=== PATIENT | female | born 1935 | race Caucasian/White ===

== ENCOUNTER 2017-07-04 15:46 | Emergency (ER) | payer MEDICARE, BC ==
[~2017-07-04] VITALS: Ht 167.6 cm; Wt 85.0 kg
[~2017-07-04 15:46] MED LIST: ADVA100A INH; ALPR-138 PO; ASPI325T PO; ATOR40TA PO; CALC600T34 PO; DIPH2%T PO; LATA.005%O OU; LEVO.125 PO; LISI10 PO; NORV10TA PO; PREV30CA36 PO; RHINSUS; SERT100 PO; SIME1CHW12 PO; TAB-TAB PO; VITA100017 PO; ZOLP10TA3 PO
[2017-07-04 15:50] VITALS: BP 122/66; PULSE 100; RESP 24; TEMP 98.1; O2SAT 94
[2017-07-04 16:43] VITALS: BP 140/81; PULSE 94; RESP 15; TEMP 98.6; O2SAT 95
[2017-07-04] MEDS ORDERED: MECLIZINE HCL 25 MG TAB PO ONE (17:15)
[2017-07-04] MEDS ORDERED: SODIUM CHLORIDE 0.9% FLUSH 10 ML FLUSH IVF PRN (17:15)
[2017-07-04] MEDS ORDERED: ONDANSETRON HCL 4 MG/2 ML VIAL IVP ONE (17:15)
--- NOTE | 2017-07-04 17:29 | PD ---
HPI Chief Complaint: Dizziness Time Seen by Provider: 16:57 Travel History International Travel<30 days: No Contact w/Intl Traveler<30days: No Traveled to known affect area: No History of Present Illness HPI Patient is a 81-year-old female presenting to emergency from for evaluation of dizziness, nausea, weakness. Patient also states that the left side of her face felt weak, she has had to hold onto florentino and furniture to walk. is at bedside and states he has not noticed any slurred speech or behavioral changes. She denies any chest pain, shortness of breath, abdominal pain, vomiting. Patient has a history of vertigo but states the symptoms are not like what she is experienced in the past. She came to emergency department today because she states her symptoms got worse and she was concerned about a stroke. She has a history of a TIA last year. Her past medical history significant for hypertension, COPD, hypothyroidism, vertigo, TIA. PFSH Past Medical History Arthritis: Yes Asthma: Yes Autoimmune Disease: No Anxiety: Yes Depression: Yes Heart Rhythm Problems: Yes (extra beat) Cancer: No Cardiovascular Problems: Yes High Cholesterol: No Chest Pain: No Congestive Heart Failure: No COPD: No Cerebrovascular Accident: Yes (april 2016) Diabetes: No Gastrointestinal Disorders: Yes GERD: Yes Genitourinary: No Headaches: Yes Hiatal Hernia: Yes Hypertension: Yes Immune Disorder: No Medical other: Yes (vertigo) Musculoskeletal: Yes Neurologic: Yes Psychiatric: Yes Reproductive: No Respiratory: Yes (copd ) Immunizations Current: Yes Migraines: No Radiation Therapy: No Sickle Cell Disease: No Sleep Apnea: Yes Thyroid Disease: Yes Ulcer: No ?: Not Past Surgical History AICD: No Appendectomy: Yes Arteriovenous Shunt: No Body Medical Devices: right arms with metals , 2 knots and bolts Eye Surgery: Yes (cataract bilat ) Hysterectomy: Yes Insulin Pump: No Joint Replacement: Yes (right shoulder) Pacemaker: No Social History Alcohol Use: No Tobacco Use: No Substance Use: No Allergies-Medications (Allergen,Severity, Reaction): Coded Allergies: diatrizoate meglumine (Unverified Allergy, Severe, anaphylactic, 07/04/17) gadobenic acid (Unverified Allergy, Severe, anaphylactic, 07/04/17) gadodiamide (Unverified Allergy, Severe, anaphylactic, 07/04/17) gadoteridol (Unverified Allergy, Severe, anaphylactic, 07/04/17) iodixanol (Unverified Allergy, Severe, anaphylactic, 07/04/17) iohexol (Unverified Allergy, Severe, anaphylactic, 07/04/17) niacin (Unverified Allergy, Severe, rash and eyes swelled, 07/04/17) Reported Meds & Prescriptions Reported Meds & Active Scripts Active Meclizine (Meclizine HCl) 25 Mg Tab 25 Mg PO TID PRN Reported Dhea 25 (Prasterone (DHEA)) 25 Mg Cap Aspirin 81 Mg Chew 81 Mg CHEW DAILY B12 (Cyanocobalamin) 1,000 Mcg Tab Zolpidem (Zolpidem Tartrate) 10 Mg Tab 10 Mg PO HS PRN Alprazolam 0.25 Mg Tab 0.25 Mg PO TID PRN Sertraline (Sertraline HCl) 100 Mg Tab 100 Mg PO DAILY Myrbetriq (Mirabegron) 50 Mg Tab 50 Mg PO DAILY Leflunomide 20 Mg Tab 20 Mg PO DAILY Gabapentin 300 Mg Cap 300 Mg PO AC LUNCH Gabapentin 600 Mg Tab 600 Mg PO AC BREAKFAST Proair Hfa 8.5 GM Inh (Albuterol Sulfate) 90 Mcg/Act Aer 1 Puff INH Q4H PRN 108 mcg/actuation Advair Diskus Inh (Fluticasone-Salmeterol Inh) 250-50 Mcg/Blist Aer 1 Puff INH BID Rinse mouth after use. Atorvastatin (Atorvastatin Calcium) 40 Mg Tab 40 Mg PO HS Lisinopril 10 Mg Tab 10 Mg PO DAILY Amlodipine (Amlodipine Besylate) 10 Mg Tab 10 Mg PO DAILY Lansoprazole 30 Mg Capdr 30 Mg PO DAILY Magnesium Gluconate 27 Mg (500 Mg) Tab 500 Mg PO DAILY Allopurinol 300 Mg Tab 300 Mg PO DAILY Vitamin D3 (Cholecalciferol) 5,000 Unit Cap 5,000 Units PO DAILY Tenoretic 50 (Atenolol-Chlorthalidone) 50-25 Mg Tab 1 Tab PO DAILY Levothyroxine (Levothyroxine Sodium) 88 Mcg Tab 88 Mcg PO DAILY Probiotic (Lactobacillus Acidophilus) 10 Billion Cell Cap 1 Cap PO TIDAC Lazara Allergy (Fexofenadine HCl) 180 Mg Tab 180 Mg PO DAILY Review of Systems Except as stated in HPI: all other systems reviewed are Neg Eyes: No: Blurred Vision, Visual changes HENT: No: Headaches Cardiovascular: No: Chest Pain or Discomfort, Tachycardia Respiratory: No: Shortness of Breath Gastrointestinal: Positive: Nausea, No: Vomiting, Diarrhea, Abdominal Pain Genitourinary: No: Dysuria Musculoskeletal: No: Myalgias Neurologic: Positive: Weakness, Dizziness, Coordination Problem, No: Headache, Change in Mentation, Slurred Speech Physical Exam Narrative GENERAL: Well-developed, well-nourished, alert elderly female. Resting comfortably in no acute distress. SKIN: Warm and dry. HEAD: Atraumatic. Normocephalic. EYES: Pupils equal and round. No scleral icterus. No injection or drainage. Extraocular movements are intact. ENT: No nasal bleeding or discharge. Mucous membranes pink and moist. NECK: Trachea midline. No JVD. CARDIOVASCULAR: Regular rate and rhythm. RESPIRATORY: No accessory muscle use. Clear to auscultation. Breath sounds equal bilaterally. GASTROINTESTINAL: Abdomen soft, non-tender, nondistended. Hepatic and splenic margins not palpable. MUSCULOSKELETAL: Extremities without clubbing, cyanosis, or edema. No obvious deformities. NEUROLOGICAL: Awake and alert. No obvious cranial nerve deficits. Motor grossly within normal limits. Five out of 5 muscle strength in the arms and legs. Normal speech. PSYCHIATRIC: Appropriate mood and affect; insight and judgment normal. Data Data Last Documented VS Vital Signs Date Time Temp Pulse Resp B/P (MAP) Pulse Ox O2 Delivery O2 Flow Rate FiO2 07/04/17 17:34 (100) 95 Nasal Cannula 2.00 07/04/17 16:43 98.6 94 15 Orders Orders Electrocardiogram (07/04/17 17:06) Complete Blood Count With Diff (07/04/17 17:06) Comprehensive Metabolic Panel (07/04/17 17:06) Magnesium (Mg) (07/04/17 17:06) Urinalysis - C+S If Indicated (07/04/17 17:06) Ct Brain W/O Iv Contrast(Rout) (07/04/17 17:06) Ecg Monitoring (07/04/17 17:06) Iv Access Insert/Monitor (07/04/17 17:06) Oximetry (07/04/17 17:06) Meclizine (Antivert) (07/04/17 17:15) Ondansetron Inj (Zofran Inj) (07/04/17 17:15) Sodium Chloride 0.9% Flush (Ns Flush) (07/04/17 17:15) Sodium Chlor 0.9% 1000 Ml Inj (Ns 1000 M (07/04/17 18:45) Labs Laboratory Tests Test 07/04/17 17:30 07/04/17 18:15 White Blood Count 10.4 TH/MM3 Red Blood Count 4.53 MIL/MM3 Hemoglobin 12.5 GM/DL Hematocrit 38.0 % Mean Corpuscular Volume 84.0 FL Mean Corpuscular Hemoglobin 27.6 PG Mean Corpuscular Hemoglobin Concent 32.8 % Red Cell Distribution Width 14.9 % Platelet Count 235 TH/MM3 Mean Platelet Volume 8.9 FL Neutrophils (%) (Auto) 69.5 % Lymphocytes (%) (Auto) 18.9 % Monocytes (%) (Auto) 8.3 % Eosinophils (%) (Auto) 2.7 % Basophils (%) (Auto) 0.6 % Neutrophils # (Auto) 7.3 TH/MM3 Lymphocytes # (Auto) 2.0 TH/MM3 Monocytes # (Auto) 0.9 TH/MM3 Eosinophils # (Auto) 0.3 TH/MM3 Basophils # (Auto) 0.1 TH/MM3 CBC Comment DIFF FINAL Differential Comment Blood Urea Nitrogen 25 MG/DL Creatinine 0.97 MG/DL Random Glucose 114 MG/DL Total Protein 7.1 GM/DL Albumin 3.3 GM/DL Calcium Level 8.2 MG/DL Magnesium Level 1.8 MG/DL Alkaline Phosphatase 109 U/L Aspartate Amino Transf (AST/SGOT) 42 U/L Alanine Aminotransferase (ALT/SGPT) 35 U/L Total Bilirubin 0.4 MG/DL Sodium Level 136 MEQ/L Potassium Level 4.0 MEQ/L Chloride Level 103 MEQ/L Carbon Dioxide Level 23.0 MEQ/L Anion Gap 10 MEQ/L Estimat Glomerular Filtration Rate 55 ML/MIN MDM Medical Decision Making Medical Screen Exam Complete: Yes Emergency Medical Condition: Yes Interpretation(s) Vital Signs Date Time Temp Pulse Resp B/P (MAP) Pulse Ox O2 Delivery O2 Flow Rate FiO2 07/04/17 16:43 98.6 94 15 140/81 (100) 95 Nasal Cannula 2.00 07/04/17 16:43 106 15 94 Nasal Cannula 2.00 07/04/17 15:50 98.1 100 24 122/66 (84) 94 Room Air Differential Diagnosis Vertigo versus metabolic abnormality versus TIA versus CVA versus other Narrative Course Patient is a 81-year-old female that presented to emergency evaluation of dizziness. Patient has a history of the same. This has been ongoing for 2 weeks. There are no focal deficits noted on exam. Patient's vital signs are stable. Labs and imaging ordered and pending. CT scan of the brain shows no acute abnormality. Labs reviewed, no acute findings were identified. Urinalysis was ordered, specimen needed to be be collected due to inadequate amount. At this time patient refused stating she had no urinary symptoms. Exam appears most consistent with vertigo. Patient was also seen and evaluated by my attending physician. Patient was reassessed, she states that she feels better after the administration of meclizine and IV fluids. She is requesting to be discharged home. Patient is encouraged to follow-up with her primary doctor, she would likely benefit from vestibular rehabilitation was dictated. She was encouraged to return to emergency department for any new or worsening symptoms. Patient verbalized understanding of these instructions. Patient is stable for discharge. Diagnosis Primary Impression: Vertigo Referrals: Primary Care Physician 2 days Patient Instructions: General Instructions, Vertigo (ED) Additional Instructions: Follow-up with her primary doctor Take medications as directed Return to emergency department for any new or worsening symptoms Med/Other Pt SpecificInfo: Prescription(s) given Scripts Meclizine (Meclizine) 25 Mg Tab 25 MG PO TID Y for VERTIGO, #30 TAB 0 Refills Prov: Chrissie Durbin 07/04/17 Disposition: 01 DISCHARGE HOME Condition: Stable Chrissie Durbin Jul 04, 2017 17:29
[2017-07-04 17:34] VITALS: O2SAT 95
--- NOTE | 2017-07-04 17:50 | RADRPT ---
EXAM DATE/TIME: 07/04/2017 17:37 [facility] COMPARISON: CT BRAIN W/O CONTRAST, April 29, 2016, 22:14. INDICATIONS : Patient complains of dizziness. RADIATION DOSE: 36.45 CTDIvol (mGy) MEDICAL HISTORY : Cerebrovascular disease. Chronic obstructive pulmonary disease. SURGICAL HISTORY : Hysterectomy. ENCOUNTER: Initial ACUITY: 1 week PAIN SCALE: 0/10 LOCATION: cranial TECHNIQUE: Multiple contiguous axial images were obtained of the head. Using automated exposure control and adj ustment of the mA and/or kV according to patient size, radiation dose was kept as low as reasonably a chievable to obtain optimal diagnostic quality images. DICOM format image data is available electro nically for review and comparison. FINDINGS: CEREBRUM: The ventricles are normal for age. No evidence of midline shift, mass lesion, hemorrhage or acute in farction. No extra-axial fluid collections are seen. POSTERIOR FOSSA: The cerebellum and brainstem are intact. The 4th ventricle is midline. The cerebellopontine angle i s unremarkable. EXTRACRANIAL: The visualized portion of the orbits is intact. SKULL: The calvaria is intact. No evidence of skull fracture. CONCLUSION: Negative for an acute process. Deon Rodriguez MD FACR on July 04, 2017 at 17:49 Board Certified Radiologist. This report was verified electronically.
[2017-07-04] MEDS ORDERED: LISI10TA3 PO (17:56)
[2017-07-04] MEDS ORDERED: ADVA250A INH (17:56)
[2017-07-04] MEDS ORDERED: ATEN1TAB71 PO (17:56)
[2017-07-04] MEDS ORDERED: FEXO15TA PO (17:56)
[2017-07-04] MEDS ORDERED: ATOR40TA16 PO (17:56)
[2017-07-04] MEDS ORDERED: AMLO10TA2 PO (17:56)
[2017-07-04] MEDS ORDERED: MAGN500T5 PO (17:56)
[2017-07-04] MEDS ORDERED: MIRA50TA PO (17:56)
[2017-07-04] MEDS ORDERED: LEFL1TAB3 PO (17:56)
[2017-07-04] MEDS ORDERED: GABA600T PO (17:56)
[2017-07-04] MEDS ORDERED: ALPR0.25 PO (17:56)
[2017-07-04] MEDS ORDERED: ALBUAER3 INH (17:56)
[2017-07-04] MEDS ORDERED: CYAN1TAB24 (17:56)
[2017-07-04] MEDS ORDERED: ALLO300T2 PO (17:56)
[2017-07-04] MEDS ORDERED: ZOLP10TA3 PO (17:56)
[2017-07-04] MEDS ORDERED: SERT-129 PO (17:56)
[2017-07-04] MEDS ORDERED: CHOL5000 PO (17:56)
[2017-07-04] MEDS ORDERED: GABA300C5 PO (17:56)
[2017-07-04] MEDS ORDERED: LANS30CA PO (17:56)
[2017-07-04] MEDS ORDERED: PRAS1CAP (17:56)
[2017-07-04] MEDS ORDERED: LACTCAP8 PO (17:56)
[2017-07-04] MEDS ORDERED: ASPI81CH CHEW (17:56)
[2017-07-04] MEDS ORDERED: LEVO88TA2 PO (17:56)
[2017-07-04 18:01] LABS: AUTOMATED NEUTROPHIL # 7.3 TH/MM3 (1.8-7.7); BASOPHIL # 0.1 TH/MM3 (0-0.2); BASOPHIL % 0.6 % (0.0-2.0); EOSINOPHIL # 0.3 TH/MM3 (0-0.4); EOSINOPHIL % 2.7 % (0.0-4.0); HEMO FLAGS DIFF FINAL; LYMPH % 18.9 % (9.0-44.0); MEAN CORPUSCULAR HEMOGLOBIN 27.6 PG (27.0-34.0); MEAN CORPUSCULAR HGB CONC 32.8 % (32.0-36.0); MONO % 8.3 % (0.0-8.0); NEUT % 69.5 % (16.0-70.0); PLATELET COUNT 235 TH/MM3 (150-450); RED BLOOD COUNT 4.53 MIL/MM3 (4.00-5.30); RED CELL DISTRIBUTION WIDTH 14.9 % (11.6-17.2); WHITE BLOOD COUNT 10.4 TH/MM3 (4.0-11.0)
[2017-07-04 18:15] LABS: ALT (GPT) 35 U/L (10-53); ANION GAP 10 MEQ/L (5-15); BLOOD UREA NITROGEN 25 MG/DL (7-18); CHLORIDE 103 MEQ/L (98-107); GLOMERULAR FILTRATION RATE 55 ML/MIN (>89); MAGNESIUM 1.8 MG/DL (1.5-2.5); SODIUM (NA) 136 MEQ/L (136-145)
[2017-07-04 18:17] LABS: ALKALINE PHOSPHATASE 109 U/L (45-117); TOTAL BILIRUBIN ADULT 0.4 MG/DL (0.2-1.0)
[2017-07-04] MEDS ORDERED: SODIUM CHLOR 0.9% 1000 ML INJ 1,000 ML IV ONE (18:45)
[2017-07-04] MEDS ORDERED: MECL-62 PO ×2 (19:36→19:45)
--- NOTE | 2017-07-04 19:41 | PD ---
Data Data Last Documented VS Vital Signs Date Time Temp Pulse Resp B/P (MAP) Pulse Ox O2 Delivery O2 Flow Rate FiO2 07/04/17 17:34 (100) 95 Nasal Cannula 2.00 07/04/17 16:43 98.6 94 15 Orders Orders Electrocardiogram (07/04/17 17:06) Complete Blood Count With Diff (07/04/17 17:06) Comprehensive Metabolic Panel (07/04/17 17:06) Magnesium (Mg) (07/04/17 17:06) Urinalysis - C+S If Indicated (07/04/17 17:06) Ct Brain W/O Iv Contrast(Rout) (07/04/17 17:06) Ecg Monitoring (07/04/17 17:06) Iv Access Insert/Monitor (07/04/17 17:06) Oximetry (07/04/17 17:06) Meclizine (Antivert) (07/04/17 17:15) Ondansetron Inj (Zofran Inj) (07/04/17 17:15) Sodium Chloride 0.9% Flush (Ns Flush) (07/04/17 17:15) Sodium Chlor 0.9% 1000 Ml Inj (Ns 1000 M (07/04/17 18:45) Labs Laboratory Tests Test 07/04/17 17:30 07/04/17 18:15 White Blood Count 10.4 TH/MM3 Red Blood Count 4.53 MIL/MM3 Hemoglobin 12.5 GM/DL Hematocrit 38.0 % Mean Corpuscular Volume 84.0 FL Mean Corpuscular Hemoglobin 27.6 PG Mean Corpuscular Hemoglobin Concent 32.8 % Red Cell Distribution Width 14.9 % Platelet Count 235 TH/MM3 Mean Platelet Volume 8.9 FL Neutrophils (%) (Auto) 69.5 % Lymphocytes (%) (Auto) 18.9 % Monocytes (%) (Auto) 8.3 % Eosinophils (%) (Auto) 2.7 % Basophils (%) (Auto) 0.6 % Neutrophils # (Auto) 7.3 TH/MM3 Lymphocytes # (Auto) 2.0 TH/MM3 Monocytes # (Auto) 0.9 TH/MM3 Eosinophils # (Auto) 0.3 TH/MM3 Basophils # (Auto) 0.1 TH/MM3 CBC Comment DIFF FINAL Differential Comment Blood Urea Nitrogen 25 MG/DL Creatinine 0.97 MG/DL Random Glucose 114 MG/DL Total Protein 7.1 GM/DL Albumin 3.3 GM/DL Calcium Level 8.2 MG/DL Magnesium Level 1.8 MG/DL Alkaline Phosphatase 109 U/L Alanine Aminotransferase (ALT/SGPT) 35 U/L Total Bilirubin 0.4 MG/DL Sodium Level 136 MEQ/L Potassium Level 4.0 MEQ/L Chloride Level 103 MEQ/L Carbon Dioxide Level 23.0 MEQ/L Anion Gap 10 MEQ/L Estimat Glomerular Filtration Rate 55 ML/MIN [facility] Supervised Visit with DMITRY: Yes Narrative Course The history, exam, and medical decision-making in the associated mid-level provider note were completed with my assistance. I reviewed and agree with the findings presented. I attest that I had a [id number] encounter with the patient on the same day, and personally performed and documented my assessment and findings in the medical record. *My assessment and Findings: 81-year-old woman presents with vertigo. History of vertigo. She had a little bit tingling in both her hands she was worried she was having a stroke. She does have multiple risk factors for stroke. I examined the patient personally. Her neurologic exam is normal. Her symptoms are markedly improved after meclizine. I don't think she's having a stroke. We can treat this for vertigo , outpatient follow-up. Diagnosis Primary Impression: Vertigo Referrals: Primary Care Physician 2 days Patient Instructions: General Instructions, Vertigo (ED) Departure Forms: Tests/Procedures Additional Instruction: Follow-up with her primary doctor Take medications as directed Return to emergency department for any new or worsening symptoms Scripts Meclizine (Meclizine) 25 Mg Tab 25 MG PO TID Y for VERTIGO, #30 TAB 0 Refills Prov: RamakrishnaChrissie 07/04/17 Disposition: 01 DISCHARGE HOME Condition: Stable Ming Arreola MD Jul 04, 2017 19:41
[2017-07-04 19:43] LABS: AST (GOT) 42 U/L (15-37)
[2017-07-04 19:49] VITALS: BP 134/71; PULSE 88; RESP 18; O2SAT 98
--- NOTE | 2017-07-05 14:40 | EKG ---
Date Performed: 07/04/2017 Time Performed: 16:11:44 PTAGE: 81 years EKG: Sinus rhythm WITH FREQUENT SUPRAVENTRICULAR PREMATURE COMPLEXES WITH SOME ABERRANCY OF CONDUCTION OF THE PREMATUR E BEATS LEFT AXIS DEVIATION NONSPECIFIC ST T CHANGE Compared to the previous tracing the frequent atr ial ectopy is new ABNORMAL ECG PREVIOUS TRACING : 04/29/2016 22.26 DOCTOR: Jonathan Stark Interpretating Date/Time 07/05/2017 14:39:38
== END 2017-07-04 19:58 | disposition home or self-care (01) ==
LOC: NEPE 15:46
DX: R42 Dizziness and giddiness (principal); R11.0 Nausea; J44.9 Chronic obstructive pulmonary disease, unspecified; I10 Essential (primary) hypertension; E03.9 Hypothyroidism, unspecified
CPT/HCPCS: 70450; 80053; 83735; 85025; 93005; 96361; 96374; 99285; J2405; J7030; 81001

== ENCOUNTER 2018-06-26 12:23 | Inpatient (IN) ==
[2018-06-26] MEDS ORDERED: Sod Chloride 0.9% Inj 1,000 ML IV.SIG ONE (12:59)
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
[2018-06-26 13:34] LABS: Baso # (Auto) 0.1 th/mm3 (0.0-0.2); Baso % (Auto) 0.7 % (0.0-2.0); Eos # (Auto) 0.1 th/mm3 (0.0-0.4); Eos % (Auto) 0.8 % (0.0-4.0); Hematocrit 38.4 % (35.0-46.0); Hemoglobin 12.4 gm/dL (11.6-15.3); Lymph # (Auto) 2.5 th/mm3 (1.0-4.8); Lymph % (Auto) 15.8 % (9.0-44.0); Mean Corpuscular HGB Conc 32.3 % (32.0-36.0); Mean Corpuscular Hemoglobin 26.3 pg (27.0-34.0); Mean Corpuscular Volume 81.2 fL (80.0-100.0); Mean Platelet Volume 8.8 fL (7.0-11.0); Mono % (Auto) 6.2 % (0.0-8.0); Neut # (Auto) 12.3 th/mm3 (1.8-7.7); Neut % (Auto) 76.5 % (16.0-70.0); Platelet Count 373 th/mm3 (150-450); Red Blood Count 4.72 mil/mm3 (4.00-5.30); Red Cell Distribution Width 15.4 % (11.6-17.2); White Blood Count 16.1 th/mm3 (4.0-11.0)
[2018-06-26 13:51] LABS: Activated Partial Thrombo Time 30.1 sec (24.3-30.1); INR 1.1 Ratio; Prothrombin Time 10.7 sec (9.8-11.6)
[2018-06-26 13:54] LABS: Alanine Aminotransferase 21 U/L (10-53); Albumin 3.3 g/dL (3.4-5.0); Anion Gap 12 meq/L (5-15); Aspartate Aminotransferase 28 U/L (15-37); Blood Urea Nitrogen 17 mg/dL (7-18); Calcium 8.7 mg/dL (8.5-10.1); Carbon Dioxide 25.8 meq/L (21.0-32.0); Chloride 100 meq/L (98-107); Glomerular Filtration Rate 52 mL/min (>89); Glucose,Random 113 mg/dL (74-106); Magnesium 1.6 mg/dL (1.5-2.5); Sodium 138 meq/L (136-145)
[2018-06-26 13:55] LABS: Potassium 4.3 meq/L (3.5-5.1)
[2018-06-26 13:57] LABS: Alkaline Phosphatase 112 U/L (45-117); D-Dimer 0.6 mg/L FEU (0.00-0.50); Total Protein 8.4 g/dL (6.4-8.2)
--- NOTE | 2018-06-26 14:09 | XR ---
EXAM DATE: 06/26/2018 2:05 PM EDT AGE/SEX: 82 years / Female INDICATIONS: Fell today. CLINICAL DATA: This is the patient's initial encounter. Patient reports that signs and symptoms have been present for 1 day and indicates a pain score of 5/10. MEDICAL/SURGICAL HISTORY: . vertigo . right humerus surgery COMPARISON: No prior exams available for comparison. FINDINGS: Elbow joint effusion. Nondisplaced radial head fracture is suspected. Very slight cortical thickening is suspected. Bone density is normal. CONCLUSION: Elbow joint effusion and radial head fracture. Electronically signed by: Praful Vuong MD 06/26/2018 2:08 PM EDT
--- NOTE | 2018-06-26 14:30 | XR ---
EXAM DATE: 06/26/2018 2:26 PM EDT AGE/SEX: 82 years / Female INDICATIONS: . Fell today. CLINICAL DATA: This is the patient's initial encounter. Patient reports that signs and symptoms have been present for 1 day and indicates a pain score of 0/10. MEDICAL/SURGICAL HISTORY: . vertigo . right humerus surgery COMPARISON: [facility], RIBS RIGHT MIN 3V W EXP CHEST, 06/26/2018. . FINDINGS: PA and lateral views of the chest demonstrate the lungs to be symmetrically aerated without evidence of mass, infiltrate or effusion. Small hiatal hernia. The cardiomediastinal contours are unremarkable . Osseous structures are intact. Orthopedic screws involving the right humeral head. CONCLUSION: 1. No acute cardiopulmonary disease. 2. Hiatal hernia. Electronically signed by: José Miguel Zarate MD 06/26/2018 2:29 PM EDT
--- NOTE | 2018-06-26 14:47 | XR ---
EXAM DATE: 06/26/2018 2:20 PM EDT AGE/SEX: 82 years / Female INDICATIONS: Fell today. CLINICAL DATA: This is the patient's initial encounter. Patient reports that signs and symptoms have been present for 1 day and indicates a pain score of 10/10. MEDICAL/SURGICAL HISTORY: . vertigo . right humerus surgery COMPARISON: [facility], CT ABDOMEN AND PELVIS W/O CONTRAST, 06/07/2018. . FINDINGS: There is no evidence of displaced fracture. No destructive lesions or areas of periosteal thickening are seen. Expiratory view of the chest is negative for pneumothorax. The mediastinal structures ar e midline. A 2 cm rim calcified structure within the left upper quadrant is noted. CONCLUSION: 1. No acute normality. 2. Splenic artery aneurysm seen within the left upper quadrant. Electronically signed by: José Miguel Zarate MD 06/26/2018 2:46 PM EDT
--- NOTE | 2018-06-26 15:29 | CT ---
EXAM DATE: 06/26/2018 3:19 PM EDT AGE/SEX: 82 years / Female INDICATIONS: Syncope with fall. Neck pain. CLINICAL DATA: This is the patient's initial encounter. Patient reports that signs and symptoms have been present for 3 days and indicates a pain score of 6/10. MEDICAL/SURGICAL HISTORY: Cardiovascular disease. None. RADIATION DOSE: 23.65 CTDI (mGy) COMPARISON: No prior exams available for comparison. TECHNIQUE: Contiguous axial images were obtained using helical multirow detector technique. The vol umetric data was post-processed with multiplanar reconstruction in oblique axial, sagittal, and coron al planes. Using automated exposure control and adjustment of the mA and/or kV according to patient s ize, radiation dose was kept as low as reasonably achievable to obtain optimal diagnostic quality audrey ges. DICOM format image data is available electronically for review and comparison. FINDINGS: Vertebrae: Normal vertebral body height. Alignment: Loss of the natural lordosis with a gentle kyphosis. No anterolisthesis or retrolisthesis .. C2-3: The bony spinal canal is normal in size. No evidence of disc bulge or herniation. Prominent b zacarias uncovertebral hypertrophy generating moderate neural foraminal narrowing on the right. The left r emains patent.. C3-4: The bony spinal canal is normal in size. No evidence of disc bulge or herniation. Prominent b zacarias uncovertebral hypertrophy generating pronounced bilateral neural foraminal narrowing. C4-5: The bony spinal canal is normal in size. No evidence of disc bulge or herniation. Prominent b zacarias uncovertebral hypertrophy generates significant right neural foraminal narrowing. The left remain s patent.. C5-6: Disc space narrowing with large anterior osteophyte production. A broad-based disc osteophyte complex eccentric to the left in combination with pronounced bony uncovertebral hypertrophy generates bilateral lateral recess narrowing but more pronounced on the left. It produces significant bilatera l neural foraminal narrowing. Central canal remains patent. C6-7: Disc space narrowing with large anterior osteophyte production. A broad-based disc osteophyte complex eccentric to the left in combination with pronounced bony uncovertebral hypertrophy generates bilateral lateral recess narrowing but more pronounced on the left. It produces significant bilatera l neural foraminal narrowing. Central canal remains patent.. C7-T1: The bony spinal canal is normal in size. No evidence of disc bulge or herniation. The neura l foramina are bilaterally patent. CONCLUSION: 1. No fracture or dislocation. 2. Advanced degenerative changes of the cervical spine as detailed above. Electronically signed by: José Miguel Zarate MD 06/26/2018 3:27 PM EDT
--- NOTE | 2018-06-26 16:43 | NM ---
EXAM DATE: 06/26/2018 4:35 PM EDT AGE/SEX: 82 years / Female INDICATIONS: Short of breath. CLINICAL DATA: This is the patient's initial encounter. Patient reports that signs and symptoms have been present for 1 day and indicates a pain score of 2/10. MEDICAL/SURGICAL HISTORY: Cardiovascular disease. Hyperparathyroidism. Asthma. . Broken arm. COMPARISON: [facility], RIBS RIGHT MIN 3V W EXP CHEST, 06/26/2018. . DOSE: 8.8 mCi Tc99m MAA IV 2 mCi Tc99m DTPA aerosol TECHNIQUE: Following five minutes of tidal breathing of DTPA aerosol, planar images of the lungs wer e performed in eight projections. The patient was then injected with MAA, and eight-view perfusion s can was performed. FINDINGS: There is a homogeneous pattern of aerosol delivery to the periphery of both lungs. No focal ventilat ory defects are seen. The perfusion lung scan demonstrates a homogenous pattern of uptake in both lungs. No segmental or s ubsegmental defects are seen. CONCLUSION: 1. Negative examination. Electronically signed by: Praful Vuong MD 06/26/2018 4:41 PM EDT
[2018-06-26 17:56] LABS: Bilirubin,Urine Negative (Negative); Clarity,Urine Cloudy (Clear); Color,Urine Yellow (Yellw/Straw); Glucose,Urine (UA) Negative (Negative); Hyaline Casts,Urine 27 /lpf (0-3); Leukocyte Esterase,Urine Negative (Negative); Mucus,Urine Few /lpf (Occasional); Nitrite,Urine Negative (Negative); Specific Gravity,Urine 1.017 (1.002-1.035); Squamous Epithelial Cell,Urine 3 /hpf (0-5)
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
[2018-06-26] MEDS: Sod Chloride 0.9% Inj 1,000 ML IV.CONT SCH (18:24)
--- NOTE | 2018-06-26 18:26 | CT ---
EXAM DATE: 06/26/2018 6:21 PM EDT AGE/SEX: 82 years / Female INDICATIONS: Fall four days ago. CLINICAL DATA: This is the patient's initial encounter. Patient reports that signs and symptoms have been present for 1 day and indicates a pain score of 4/10. MEDICAL/SURGICAL HISTORY: Cardiovascular disease. Shobha's disease. None. RADIATION DOSE: 49.00 CTDI (mGy) COMPARISON: [facility] [place], CT BRAIN W/O CONTRAST, 07/04/2017. [facility] [place], CT BRAIN W/O CONTRAST, 04/29/2016. . TECHNIQUE: CT of the head without contrast. Using automated exposure control and adjustment of the mA and/or kV according to patient size, radiation dose was kept as low as reasonably achievable to ob tain optimal diagnostic quality images. DICOM format image data is available electronically for revi ew and comparison. FINDINGS: Cerebrum: Central cerebral atrophy is stable. Mild periventricular and subcortical white matter smal l vessel ischemic changes are noted bilaterally. No evidence of midline shift, mass lesion, hemorrhag e or acute infarction. No extraaxial fluid collections are seen. Posterior Fossa: The cerebellum and brainstem are intact. The 4th ventricle is midline. The cerebe llopontine angle is unremarkable. Extracranial: The visualized portion of the orbits is intact. Skull: The calvaria is intact. No evidence of skull fracture. CONCLUSION: 1. Stable mild central cerebral atrophy and periventricular/subcortical white matter small vessel is chemic changes bilaterally. 2. No acute hemorrhage, acute infarct, mass effect or extra-axial fluid collections. . Electronically signed by: Winston Carlin MD 06/26/2018 6:25 PM EDT
--- NOTE | 2018-06-26 19:44 | US ---
EXAM DATE: 06/26/2018 7:39 PM EDT AGE/SEX: 82 years / Female INDICATIONS: Transient ischemic attack. CLINICAL DATA: This is the patient's subsequent encounter. Patient reports that signs and symptoms h ave been present for 1 day and indicates a pain score of 0/10. MEDICAL/SURGICAL HISTORY: Hypercholesterolemia. Asthma. Broken arm. Coronary artery disease. Richard shimoto's disease. Irritable bowel syndrome. . Shoulder surgery. COMPARISON: [facility] [place], [place] CAROTID ARTERIES, 04/30/2016. . VELOCITY PARAMETERS: ICA/CCA Ratio: Right 1.6 , Left 1.5 ICA: Right 157 cm/sec, Left 134 cm/sec CCA: Right 95.7 cm/sec, Left 89.4 cm/sec ECA: Right 72.4 cm/sec, Left 83.9 cm/sec Vertebral: Right 55.3 cm/sec antegrade, Left 45.5 cm/sec antegrade FINDINGS: Right Carotid: No significant plaque is visualized.The waveforms are within normal limits. Left Carotid: No significant plaque is visualized. The waveforms are within normal limits. Other: None. CONCLUSION: 1. Right Internal Carotid Artery: No hemodynamically significant stenosis. 2. Left Internal Carotid Artery: No hemodynamically significant stenosis. Electronically signed by: Winston Carlin MD 06/26/2018 7:43 PM EDT
--- NOTE | 2018-06-26 20:25 | P.CONVS ---
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 No focal motor deficits then or now. Some mention of disorientation but completely appropriate now. On plain skeletal films was found to have 2.3 cm calcified mass in LUQ most likely c/w splenic artery aneurysm. Review of Systems Constitutional: Denies fever(s) Eyes: Reports requires corrective lenses Cardiovascular: Reports irregular heart rhythm Respiratory: Reports shortness of breath PMFSH - History History Provided By: Patient - Medical History Medical History: Medical History (Last Reviewed 06/26/18 @ 20:22 by Winston Tobin MD) Broken arm (Acute) H/O: hysterectomy Asthma Coronary artery disease Shobha's disease Shobha's thyroiditis High cholesterol Irritable bowel disease - Surgical History Surgical History: Surgical History (Last Reviewed 06/26/18 @ 20:22 by Winston Tobin MD) H/O shoulder surgery History of appendectomy - Family History Family History: Family History (Last Updated 06/26/18 @ 18:07 by Ximena Hyman MD) Mother CHF (congestive heart failure) - Tobacco History Second Hand Smoke Exposure: No Smoking Status: Former smoker Tobacco Type: Cigarettes - Alcohol History How Often Do You Have a Drink Containing Alcohol: 2 to 3 times a week - Substance Use History Substance History: No History of Abuse - Travel History Recent Travel in the [place] Within the Last 8 Weeks: No Recent Travel Out of the Country Within the Last 8 Weeks: No - Immunization History Tetanus Immunization: <5 Years Hx Influenza Vaccine This Season: No Medications and Allergies Active Medications: Active Medications Hydrocodone Bitart/Acetaminophen ([place] 5/325) 1 tab PO Q6H PRN PRN Reason: acute pain 5-10 Albuterol (Albuterol Neb (Prn)) 1.25 mg NEB Q4HR NEB PRN PRN Reason: sob Sodium Chloride (Ns Inj) 1,000 mls @ 60 mls/hr IV.CONT .[id number] SORIN Last Admin: 06/26/18 18:24 Dose: 60 mls/hr Ondansetron HCl (Zofran Inj) 4 mg IV.PUSH Q8H PRN PRN Reason: nausea Allergies Allergy/AdvReac Type Severity Reaction Status Date / Time diatrizoate meglumine Allergy Severe anaphylacti Unverified 07/04/17 16:46 c gadobenic acid Allergy Severe anaphylacti Unverified 07/04/17 16:46 c gadodiamide Allergy Severe anaphylacti Unverified 07/04/17 16:46 c gadoteridol Allergy Severe anaphylacti Unverified 07/04/17 16:46 c iodixanol Allergy Severe anaphylacti Unverified 07/04/17 16:46 c iohexol Allergy Severe anaphylacti Unverified 07/04/17 16:46 c niacin Allergy Severe rash and Unverified 07/04/17 16:46 eyes swelled Iodinated Contrast- Oral and Allergy Anaphylaxis Verified 06/26/18 12:38 IV Dye Home Medications Medication Instructions Recorded Confirmed Type Advair Diskus 06/26/18 History Lazara Allergy 180 mg PO DAILY 06/26/18 06/26/18 History Centrum 06/26/18 History Hydromet 06/26/18 History ProAir HFA 06/26/18 History Probiotic 150 mg PO PRN 06/26/18 06/26/18 History Xanax 25 mg PO PRN 06/26/18 06/26/18 History allopurinol 300 mg 06/26/18 History aspirin 325 mg PO DAILY 06/26/18 06/26/18 History atorvastatin 40 mg 06/26/18 History gabapentin 06/26/18 History lansoprazole 30 mg 06/26/18 History leflunomide 06/26/18 History levothyroxine 100 mg 06/26/18 06/26/18 History lisinopril 10 mg 06/26/18 History magnesium gluconate 500 mg 06/26/18 History zolpidem 10 mg PO HS 06/26/18 06/26/18 History Physical Exam Vital Signs / I&O: Vital Signs 06/26/18 12:28 06/26/18 12:44 06/26/18 15:24 Temperature 98.4 F Pulse Rate 117 H 115 H 89 Respiratory Rate 18 16 Blood Pressure 141/69 H 159/84 H 143/63 H Pulse Oximetry 94 L 94 L 95 06/26/18 17:29 06/26/18 19:12 Temperature Pulse Rate 97 H 90 Respiratory Rate 20 18 Blood Pressure 140/99 H 150/98 H Pulse Oximetry 95 94 L Intake & Output 06/26/18 06/26/18 06/27/18 06:59 18:59 06:59 Intake Total 1000 / 1000 Balance 1000 / 1000 Weight 83.007 kg Intake: IV 1000 / 1000 Neuro: alert, oriented, MIRELES HEENT: anicteric sclera Neck: no JVD Heart: irreg rate Lungs: clear Abdomen: nontender, even L UQ Vascular: palpable pedal pulses Laboratory Results - last 24 hr 06/26/18 06/26/18 06/26/18 13:00 13:00 13:00 WBC 16.1 H RBC 4.72 Hgb 12.4 Hct 38.4 MCV 81.2 MCH 26.3 L MCHC 32.3 RDW 15.4 Plt Count 373 MPV 8.8 Neut % (Auto) 76.5 H Lymph % (Auto) 15.8 Porter % (Auto) 6.2 Eos % (Auto) 0.8 Baso % (Auto) 0.7 Neut # (Auto) 12.3 H Lymph # (Auto) 2.5 Porter # (Auto) 1.0 H Eos # (Auto) 0.1 Baso # (Auto) 0.1 WBC Differential . Differential Comment Auto diff final PT 10.7 INR 1.1 APTT 30.1 D-Dimer Quant (PE/DVT) 0.60 H Sodium 138 Potassium 4.3 Chloride 100 Carbon Dioxide 25.8 Anion Gap 12 BUN 17 Creatinine 1.03 H Estimated GFR 52 L Random Glucose 113 H Calcium 8.7 Magnesium 1.6 Total Bilirubin 0.6 AST 28 ALT 21 Alkaline Phosphatase 112 Troponin I Less than 0.02 L B-Natriuretic Peptide Total Protein 8.4 H Albumin 3.3 L Urine Color Urine Clarity Urine pH Ur Specific Hazard Urine Protein Urine Glucose (UA) Urine Ketones Urine Occult Blood Urine Nitrate Urine Bilirubin Urine Urobilinogen Ur Leukocyte Esterase Urine RBC Urine WBC Ur Squamous Epith Cells Hyaline Casts Urine Mucus Micro UA Comment Ur Microscopic Review Urine Culture Comments 06/26/18 06/26/18 13:00 17:34 WBC RBC Hgb Hct MCV MCH MCHC RDW Plt Count MPV Neut % (Auto) Lymph % (Auto) Porter % (Auto) Eos % (Auto) Baso % (Auto) Neut # (Auto) Lymph # (Auto) Porter # (Auto) Eos # (Auto) Baso # (Auto) WBC Differential Differential Comment PT INR APTT D-Dimer Quant (PE/DVT) Sodium Potassium Chloride Carbon Dioxide Anion Gap BUN Creatinine Estimated GFR Random Glucose Calcium Magnesium Total Bilirubin AST ALT Alkaline Phosphatase Troponin I B-Natriuretic Peptide 28 Total Protein Albumin Urine Color Yellow Urine Clarity Cloudy H Urine pH 6.0 Ur Specific Hazard 1.017 Urine Protein 30 H Urine Glucose (UA) Negative Urine Ketones Trace H Urine Occult Blood Negative Urine Nitrate Negative Urine Bilirubin Negative Urine Urobilinogen 2.0 H Ur Leukocyte Esterase Negative Urine RBC 1 Urine WBC 5 Ur Squamous Epith Cells 3 Hyaline Casts 27 Urine Mucus Few H Micro UA Comment Culture not ind Ur Microscopic Review Not Reportable Urine Culture Comments Culture not ind Impressions Carotid Doppler Study 06/26/18 00:00 CONCLUSION: 1. Right Internal Carotid Artery: No hemodynamically significant stenosis. 2. Left Internal Carotid Artery: No hemodynamically significant stenosis. Cervical Spine CT 06/26/18 12:59 CONCLUSION: 1. No fracture or dislocation. 2. Advanced degenerative changes of the cervical spine as detailed above. Elbow X-Ray 06/26/18 13:01 CONCLUSION: Elbow joint effusion and radial head fracture. Ribs X-Ray 06/26/18 13:01 CONCLUSION: 1. No acute normality. 2. Splenic artery aneurysm seen within the left upper quadrant. Chest X-Ray 06/26/18 13:55 CONCLUSION: 1. No acute cardiopulmonary disease. 2. Hiatal hernia. Pulmonary Perfusion Imaging 06/26/18 14:53 CONCLUSION: 1. Negative examination. Head CT 06/26/18 17:16 CONCLUSION: 1. Stable mild central cerebral atrophy and periventricular/subcortical white matter small vessel ischemic changes bilaterally. 2. No acute hemorrhage, acute infarct, mass effect or extra-axial fluid collections. . Assessment and Plan - Assessment (1) Splenic artery aneurysm Code(s): I72.8 - Aneurysm of other specified arteries Status: Acute - Plan 82yo adm for fall w/u who has incidentally found splenic artery aneurysm 1. Will arrange outpt f/u w CTA. Likely needs no intervention ever as risk of rupture in elderly female with calcified aneurysm is quite small 2. Carotid duplex shows <50% B ICA stenosis, so no additional carotid imaging needed. Not a carotid based etiology of recent fall 3. New onset (presumably) a fib - defer to primary service. Winston Tobin MD FACS [employer] worker [facility] - Heart and Vascular Surgery at [facility] [phone]
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
[2018-06-27 08:11] LABS: Baso # (Auto) 0.1 th/mm3 (0.0-0.2); Baso % (Auto) 0.7 % (0.0-2.0); Eos # (Auto) 0.2 th/mm3 (0.0-0.4); Eos % (Auto) 1.8 % (0.0-4.0); Hematocrit 32.8 % (35.0-46.0); Hemoglobin 10.9 gm/dL (11.6-15.3); Lymph # (Auto) 2.1 th/mm3 (1.0-4.8); Mean Corpuscular HGB Conc 33.2 % (32.0-36.0); Mean Corpuscular Hemoglobin 26.9 pg (27.0-34.0); Mean Platelet Volume 8.8 fL (7.0-11.0); Mono # (Auto) 0.7 th/mm3 (0.0-0.9); Mono % (Auto) 7.3 % (0.0-8.0); Neut # (Auto) 6.9 th/mm3 (1.8-7.7); Neut % (Auto) 69.2 % (16.0-70.0); Platelet Count 247 th/mm3 (150-450); Red Blood Count 4.05 mil/mm3 (4.00-5.30); Red Cell Distribution Width 15.2 % (11.6-17.2); White Blood Count 9.9 th/mm3 (4.0-11.0)
--- NOTE | 2018-06-27 10:28 | P.PNVS ---
Subjective Subjective/Hospital Course: 82/F alert in oriented x 3, speech clear Pt s/p fall- Fell on her coffee table (right side) 4 days ago Pt w/ an incidental finding 2.3 cm calcified splenic artery aneurysm, No prior hx of Pt w/o c/o abdominal pain Abdomen S/NT Pt endorsed R sided rib/arm/leg pain, exacerbated with movement Objective Vital Signs / I&O: Vital Signs 06/26/18 12:28 06/26/18 12:44 06/26/18 15:24 Temperature 98.4 F Pulse Rate 117 H 115 H 89 Respiratory Rate 18 16 Blood Pressure 141/69 H 159/84 H 143/63 H Pulse Oximetry 94 L 94 L 95 06/26/18 17:29 06/26/18 19:12 06/27/18 00:00 Temperature 97.5 F L Pulse Rate 97 H 90 94 H Respiratory Rate 20 18 18 Blood Pressure 140/99 H 150/98 H 138/63 Pulse Oximetry 95 94 L 06/27/18 00:53 06/27/18 03:29 06/27/18 04:00 Temperature 98.3 F Pulse Rate 86 79 Respiratory Rate 17 18 Blood Pressure 153/71 H Pulse Oximetry 91 L 06/27/18 07:58 06/27/18 08:00 Temperature 98.0 F Pulse Rate 85 92 H Respiratory Rate 12 Blood Pressure 177/89 H Pulse Oximetry 91 L Intake & Output 06/26/18 06/27/18 06/27/18 18:59 06:59 18:59 Intake Total 1000 / 1000 Output Total 120 / 120 Balance 1000 / 1000 -120 / -120 Weight 83.007 kg 83.007 kg Intake: IV 1000 / 1000 Output: Urine 120 / 120 Other: # Voids 5 Date of Last Bowel Movement 06/26/18 Weight On Admission 83.007 kg Physical Exam: GENERAL: AXOX3,NAD,GCS15 SKIN: Warm and dry NECK: Supple, trachea midline. No JVD or lymphadenopathy CARDIOVASCULAR: Irregular rate w/o murmurs, gallops, or rubs RESPIRATORY: BS CTA/No accessory muscle use GASTROINTESTINAL: Abdomen S/NT/nondistended MUSCULOSKELETAL: Right sided rib/arm.leg tender to palpation Palpable R/L DP Laboratory Results - last 24 hr 06/26/18 06/26/18 06/26/18 13:00 13:00 13:00 WBC 16.1 H RBC 4.72 Hgb 12.4 Hct 38.4 MCV 81.2 MCH 26.3 L MCHC 32.3 RDW 15.4 Plt Count 373 MPV 8.8 Neut % (Auto) 76.5 H Lymph % (Auto) 15.8 [place] % (Auto) 6.2 Eos % (Auto) 0.8 Baso % (Auto) 0.7 Neut # (Auto) 12.3 H Lymph # (Auto) 2.5 [place] # (Auto) 1.0 H Eos # (Auto) 0.1 Baso # (Auto) 0.1 WBC Differential . Differential Comment Auto diff final PT 10.7 INR 1.1 APTT 30.1 D-Dimer Quant (PE/DVT) 0.60 H Sodium 138 Potassium 4.3 Chloride 100 Carbon Dioxide 25.8 Anion Gap 12 BUN 17 Creatinine 1.03 H Estimated GFR 52 L Random Glucose 113 H Calcium 8.7 Magnesium 1.6 Total Bilirubin 0.6 AST 28 ALT 21 Alkaline Phosphatase 112 Troponin I Less than 0.02 L B-Natriuretic Peptide Total Protein 8.4 H Albumin 3.3 L Urine Color Urine Clarity Urine pH Ur Specific [place] Urine Protein Urine Glucose (UA) Urine Ketones Urine Occult Blood Urine Nitrate Urine Bilirubin Urine Urobilinogen Ur Leukocyte Esterase Urine RBC Urine WBC Ur Squamous Epith Cells Hyaline Casts Urine Mucus Micro UA Comment Ur Microscopic Review Urine Culture Comments 06/26/18 06/26/18 06/27/18 13:00 17:34 06:40 WBC 9.9 RBC 4.05 Hgb 10.9 L Hct 32.8 L MCV 81.0 MCH 26.9 L MCHC 33.2 RDW 15.2 Plt Count 247 D MPV 8.8 Neut % (Auto) 69.2 Lymph % (Auto) 21.0 [place] % (Auto) 7.3 Eos % (Auto) 1.8 Baso % (Auto) 0.7 Neut # (Auto) 6.9 Lymph # (Auto) 2.1 [place] # (Auto) 0.7 Eos # (Auto) 0.2 Baso # (Auto) 0.1 WBC Differential . Differential Comment Auto diff final PT INR APTT D-Dimer Quant (PE/DVT) Sodium Potassium Chloride Carbon Dioxide Anion Gap BUN Creatinine Estimated GFR Random Glucose Calcium Magnesium Total Bilirubin AST ALT Alkaline Phosphatase Troponin I B-Natriuretic Peptide 28 Total Protein Albumin Urine Color Yellow Urine Clarity Cloudy H Urine pH 6.0 Ur Specific [place] 1.017 Urine Protein 30 H Urine Glucose (UA) Negative Urine Ketones Trace H Urine Occult Blood Negative Urine Nitrate Negative Urine Bilirubin Negative Urine Urobilinogen 2.0 H Ur Leukocyte Esterase Negative Urine RBC 1 Urine WBC 5 Ur Squamous Epith Cells 3 Hyaline Casts 27 Urine Mucus Few H Micro UA Comment Culture not ind Ur Microscopic Review Not Reportable Urine Culture Comments Culture not ind Impressions Carotid Doppler Study 06/26/18 00:00 CONCLUSION: 1. Right Internal Carotid Artery: No hemodynamically significant stenosis. 2. Left Internal Carotid Artery: No hemodynamically significant stenosis. Cervical Spine CT 06/26/18 12:59 CONCLUSION: 1. No fracture or dislocation. 2. Advanced degenerative changes of the cervical spine as detailed above. Elbow X-Ray 06/26/18 13:01 CONCLUSION: Elbow joint effusion and radial head fracture. Ribs X-Ray 06/26/18 13:01 CONCLUSION: 1. No acute normality. 2. Splenic artery aneurysm seen within the left upper quadrant. Chest X-Ray 06/26/18 13:55 CONCLUSION: 1. No acute cardiopulmonary disease. 2. Hiatal hernia. Pulmonary Perfusion Imaging 06/26/18 14:53 CONCLUSION: 1. Negative examination. Head CT 06/26/18 17:16 CONCLUSION: 1. Stable mild central cerebral atrophy and periventricular/subcortical white matter small vessel ischemic changes bilaterally. 2. No acute hemorrhage, acute infarct, mass effect or extra-axial fluid collections. . Assessment and Plan - Assessment (1) Splenic artery aneurysm Code(s): I72.8 - Aneurysm of other specified arteries Status: Acute - Plan 82/F admitted for fall Pt w/ recent incidental finding s/p w/u for fall- Splenic artery aneurysm, No prior hx of Plan Discussed results w/ pt Arranged out pt f/u w/ a surveillance CTA Pt made aware of plan Zoe Corbett NP [facility] [place] [phone]
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
[2018-06-27] MEDS: Sod Chloride 0.9% Inj 1,000 ML IV.CONT SCH (13:38)
--- NOTE | 2018-06-27 14:02 | MB ---
cc: Heriberto Sanderson MD DATE: 06/27/2018 REASON FOR CONSULTATION: Atrial fibrillation. HISTORY OF PRESENT ILLNESS: The patient is an 82-year-old white female, followed in our office by Dr. Kang Harris, with a history of minimal coronary artery disease demonstrated by cardiac catheterization 1995, history of sleep apnea, rheumatoid arthritis, mild COPD, hypertension, hyperlipidemia, transient ischemic attack 2016, who was brought to the hospital after a fall. The patient was on her way to get a drink of water when she believes she lost balance subsequently resulting in a fall. She denies any preceding lightheadedness, palpitations, nausea, diaphoresis, chest pain. Very rarely she experiences episodes of imbalance, mostly due to infrequent episodes of vertigo. Very rarely she also experiences fleeting, fluttering, palpitations, without associated dizziness or shortness of breath. Rarely she experiences substernal chest "heaviness" never lasting more than 60 seconds with absolutely no relationship to exertion. The patient denies pedal edema, paroxysmal nocturnal dyspnea. PAST MEDICAL HISTORY: 1. Minimal coronary artery disease demonstrated by 1995 cardiac catheterization. 2. Sleep apnea. 3. Rheumatoid arthritis. 4. Mild chronic obstructive pulmonary disease. 5. Gastroesophageal reflux disease. 6. Hypertension. 7. Hypothyroidism. 8. Hyperlipidemia. 9. Irritable bowel syndrome. 10. Transient ischemic attack 2016. CARDIAC MEDICATIONS AT HOME: 1. Aspirin 81 mg daily. 2. Atorvastatin 40 mg at bedtime. 3. Losartan 50 mg daily. FAMILY HISTORY: Noncontributory. SOCIAL HISTORY: The patient is a former smoker. There is no history of alcohol abuse. REVIEW OF SYSTEMS: As in history of present illness, otherwise negative or noncontributory. She also denies headache, visual changes, unilateral weakness or numbness, abdominal pain, melena, dyspepsia, bright red blood per rectum. PHYSICAL EXAMINATION: VITAL SIGNS: Her blood pressure 158/78 with a pulse of 89, respirations 18. GENERAL: She is a well-developed, well-nourished white female, in no acute distress. NECK: Jugular venous pressure is normal. Carotid pulses are 2+ bilaterally and without bruits. CHEST: Reveals clear lungs euceda. CARDIAC: She has a regular rhythm and rate without S3 or S4. There is a grade 1/6 systolic ejection murmur heard at the base of the heart. The S2 heart sound is normal. ABDOMEN: She has a soft, obese, nontender abdomen. Bowel sounds are present. There is no definite hepatosplenomegaly. EXTREMITIES: Reveals no clubbing, cyanosis or edema. DIAGNOSTIC DATA: EKG from 06/26/2018 shows normal sinus rhythm with occasional premature atrial complexes, ST abnormality; consider lateral ischemia. IMAGING: Chest x-ray shows no acute disease. LABORATORY DATA: Includes WBC 9.9, hemoglobin 10.9, platelets 247. Potassium 4.3, BUN 17, creatinine 1.03. Troponin less than 0.02, glucose 113. ASSESSMENT AND PLAN: 82-year-old white female with a history of minimal coronary artery disease, sleep apnea, rheumatoid arthritis, gastroesophageal reflux disease, hypertension, transient ischemic attack 2016, admitted status post a fall. I have been asked to see the patient for atrial fibrillation. Her numerous monitoring strips have been reviewed as well as her EKG. I see no definitive evidence for atrial fibrillation. She has a number of salvos of what appears to be atrial tachycardia. There are other episodes with some artifact, and it is difficult to completely exclude underlying atrial fibrillation. She also has one 14 beat run of wide complex tachycardia, the morphology of which is more suggestive of aberrantly conducted atrial tachycardia. Infrequently she experiences palpitations. She does have a history of a transient ischemic attack in 2016. RECOMMENDATIONS: 1. As there is no definitive evidence for atrial fibrillation, would favor treating her atrial tachycardia and single episode of wide complex tachycardia with beta ghassan therapy as well as an antiarrhythmic drug such as propafenone or Amiodarone. 2. If stable, she can be discharged tomorrow. Would also consider outpatient extended monitoring. If indeed she demonstrates atrial fibrillation, her thromboembolic risk is high, and at that point she should be treated with anticoagulation therapy. In the meantime, we will increase her daily aspirin to 162 mg. MD Kang Turner MD [facility]/timbo , 01:23 PM , 01:33 PM NATHAN
--- NOTE | 2018-06-27 14:03 | P.DCO ---
- Diagnosis (1) Fall (2) Fracture of radial head, right, closed - Physical Therapy Order: Evaluate and treat - Home Health Nursing Order: Medical education, Signs/symptoms of disease process, Medication education-adverse effect, Nursing assessment with vital signs - Developmental Mathematics Professor Order: To evaluate: Support services - Case Management Consult Yes - Certification I have seen patient Herminia Cuellar on 06/27/18. My clinical findings support the need for the requested home health care services because: Deconditioned with increased weakness, Need for psychosocial assistance, High risk of falls I certify that my clinical findings support that this patient is homebound because: Unsteady gait/balance, Need for psychosocial assistance (1) Fall Qualifiers: Encounter type: initial encounter Qualified Code(s): W19.XXXA - Unspecified fall, initial encounter (2) Fracture of radial head, right, closed Qualifiers: Encounter type: initial encounter Fracture alignment: nondisplaced Qualified Code(s): S52.124A - Nondisplaced fracture of head of right radius, initial encounter for closed fracture
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
--- NOTE | 2018-06-27 15:15 | MR ---
EXAM DATE: 06/27/2018 3:02 PM EDT AGE/SEX: 82 years / Female INDICATIONS: CVA. Fall. CLINICAL DATA: This is the patient's subsequent encounter. Patient reports that signs and symptoms h ave been present for 2 days and indicates a pain score of 0/10. MEDICAL/SURGICAL HISTORY: Cardiovascular disease. Hypertension. Hypercholesterolemia. Hashim otos. . Shoulder surgery. [place] [facility] [place]. . TECHNIQUE: Multiplanar, multisequence examination of the brain was performed without and with 8 ml Ga davist (gadobutrol) contrast as a single exam dose. FINDINGS: Mild symmetric central and cortical atrophic change. Patchy mild benign-appearing white matter signal changes. No evidence of mass or hemorrhage. Nothing to suggest acute infarction. Extracranial struct ures are benign and intact. CONCLUSION: No acute intracranial findings Electronically signed by: Jorge Alberto Fernandez MD 06/27/2018 3:14 PM EDT
[2018-06-27] MEDS ORDERED: Gadobutrol PF 2 MMOL/2 ML Vial (for RAD) IV.SIG ONE (15:33)
[2018-06-27 19:23] LABS: Thyroid Stimulating Hormone 4.03 uIU/mL (0.358-3.740)
[2018-06-27] MEDS: Metoprolol Tartrate 50 MG Tablet PO SCH (20:41)
[2018-06-27] MEDS: ALPRAZolam 0.25 MG Tablet PO PRN (20:41)
[2018-06-27] MEDS: Propafenone 150 MG Tablet PO SCH (20:41)
[2018-06-27] MEDS: Gabapentin 300 MG Capsule PO SCH (20:42)
[2018-06-27] MEDS ORDERED: Zolpidem Tartrate 5 MG Tablet PO PRN (21:00)
--- NOTE | 2018-06-28 00:50 | ECG ---
Date Performed: 06/26/2018 Time Performed: 12:55:07 PTAGE: 82 years EKG: SINUS TACHYCARDIA WITH FREQUENT SUPRAVENTRICULAR PREMATURE COMPLEXES PATTERN CONSISTENT WIT H PULMONARY DISEASE INFERIOR MYOCARDIAL INFARCTION ABNORMAL ECG PREVIOUS TRACING : 07/04/2017 16.11 Since the previous tracing, no significant change noted DOCTOR: Bryan Zamudio Interpretating Date/Time 06/28/2018 00:48:48
[2018-06-28] MEDS: ALPRAZolam 0.25 MG Tablet PO PRN (03:37)
[2018-06-28] MEDS ORDERED: Levothyroxine 100 MCG Tablet PO SCH (06:00)
[2018-06-28] MEDS: Sod Chloride 0.9% Inj 1,000 ML IV.CONT SCH (06:28)
--- NOTE | 2018-06-28 07:16 | P.PNNEU ---
Subjective Subjective Comments: up to br steady on feet not dizzy Active Medications: Active Medications Hydrocodone Bitart/Acetaminophen ([place] 5/325) 1 tab PO Q4H PRN PRN Reason: PAIN SCALE 6 TO 10 Last Admin: 06/28/18 03:36 Dose: 1 tab Albuterol (Albuterol Neb (Prn)) 1.25 mg NEB Q4HR NEB PRN PRN Reason: sob Allopurinol (Zyloprim) 300 mg PO DAILY [facility] Alprazolam (Xanax) 0.25 mg PO TID PRN PRN Reason: Anxiety Last Admin: 06/28/18 03:37 Dose: 0.25 mg Aspirin (Ecotrin) 162 mg PO DAILY [facility] Last Admin: 06/27/18 15:31 Dose: 162 mg Atorvastatin Calcium (Lipitor) 40 mg PO DAILY [facility] Gabapentin (Neurontin) 300 mg PO BID [facility] Last Admin: 06/27/18 20:42 Dose: 300 mg Sodium Chloride (Ns Inj) 1,000 mls @ 60 mls/hr IV.CONT .[id number] [facility] Last Infusion: 06/28/18 06:39 Dose: 0 mls/hr Levothyroxine Sodium (Synthroid) 100 mcg PO DAILY@0600 [facility] Last Admin: 06/28/18 06:27 Dose: 100 mcg Losartan Potassium (Cozaar) 50 mg PO DAILY [facility] Last Admin: 06/27/18 19:01 Dose: 50 mg Metoprolol Tartrate (Lopressor) 50 mg PO BID [facility] Last Admin: 06/27/18 20:41 Dose: 50 mg Miscellaneous (Pill Splitter) 1 each OTHER UNSCH PRN PRN Reason: PILL SPLITTER Ondansetron HCl (Zofran Inj) 4 mg IV.PUSH Q8H PRN PRN Reason: nausea Pantoprazole Sodium (Protonix) 40 mg PO BID [facility] Last Admin: 06/27/18 20:42 Dose: 40 mg Propafenone HCl (Rythmol) 150 mg PO BID [facility] Last Admin: 06/27/18 20:41 Dose: 150 mg Sertraline HCl (Zoloft) 150 mg PO DAILY [facility] Zolpidem Tartrate (Ambien) 5 mg PO HS PRN PRN Reason: INSOMNIA Last Admin: 06/27/18 20:42 Dose: 5 mg Allergies/Adverse Reactions: Allergies Allergy/AdvReac Type Severity Reaction Status Date / Time diatrizoate meglumine Allergy Severe anaphylacti Verified 06/26/18 21:22 c iodixanol Allergy Severe anaphylacti Verified 06/26/18 21:23 c iohexol Allergy Severe anaphylacti Verified 06/26/18 21:23 c niacin Allergy Severe rash and Verified 06/26/18 21:23 eyes swelled Iodinated Contrast- Oral and Allergy Anaphylaxis Verified 06/26/18 21:23 IV Dye Physical Exam Vital signs: Vital Signs 06/27/18 07:58 06/27/18 08:00 06/27/18 13:01 Temperature 98.0 F 98.6 F Pulse Rate 85 92 H 89 Respiratory Rate 12 18 Blood Pressure 177/89 H 158/78 H Pulse Oximetry 91 L 06/27/18 15:50 06/27/18 17:00 06/27/18 20:00 Temperature 98.1 F 97 F L 98.1 F Pulse Rate 89 70 83 Respiratory Rate 20 20 18 Blood Pressure 141/78 H 146/85 H 139/63 Pulse Oximetry 98 95 94 L 06/28/18 00:00 06/28/18 00:13 06/28/18 00:14 Temperature 98.5 F Pulse Rate 83 69 71 Respiratory Rate 20 18 18 Blood Pressure 116/58 L 164/68 H 151/71 H Pulse Oximetry 93 L 95 94 L 06/28/18 01:19 06/28/18 03:03 06/28/18 04:00 Temperature 98 F Pulse Rate 62 Respiratory Rate 15 14 18 Blood Pressure 155/92 H Pulse Oximetry 94 L 06/28/18 04:04 06/28/18 04:05 Temperature Pulse Rate 65 68 Respiratory Rate 18 18 Blood Pressure 165/84 H 146/64 H Pulse Oximetry 92 L 94 L Intake & Output 06/27/18 06/28/18 06/28/18 18:59 06:59 18:59 Intake Total 1240 / 1240 Balance 1240 / 1240 Weight 83 kg Intake: IV 1000 / 1000 NS Inj 1,000 ML @ 60 mls/hr IV. 1000 / 1000 CONT .[id number] [facility] Rx#:[id number] Oral 240 / 240 Other: # Voids 2 Date of Last Bowel Movement 06/27/18 06/27/18 # Bowel Movements 0 Narrative: awake alert moves all well nad Objective Laboratory Results - last 24 hr 06/27/18 06/27/18 06:40 17:49 WBC 9.9 RBC 4.05 Hgb 10.9 L Hct 32.8 L MCV 81.0 MCH 26.9 L MCHC 33.2 RDW 15.2 Plt Count 247 D MPV 8.8 Neut % (Auto) 69.2 Lymph % (Auto) 21.0 [place] % (Auto) 7.3 Eos % (Auto) 1.8 Baso % (Auto) 0.7 Neut # (Auto) 6.9 Lymph # (Auto) 2.1 [place] # (Auto) 0.7 Eos # (Auto) 0.2 Baso # (Auto) 0.1 WBC Differential . Differential Comment Auto diff final Vitamin B12 1859 H TSH 4.030 H Review/Management - Review/Management Daily Summary: imp doing well mri neg stand bp ok eeg one minimal left abn i dw dr perry [facility] and review eeg then ok dc neurowise
--- NOTE | 2018-06-28 08:48 | P.PNCA ---
Subjective Interval history: Denies palpitations, CP, dyspnea, dizziness, nausea. Slept very well. Physical Exam Vital signs: Vital Signs 06/27/18 13:01 06/27/18 15:50 06/27/18 17:00 Temperature 98.6 F 98.1 F 97 F L Pulse Rate 89 89 70 Respiratory Rate 18 20 20 Blood Pressure 158/78 H 141/78 H 146/85 H Pulse Oximetry 98 95 06/27/18 20:00 06/28/18 00:00 06/28/18 00:13 Temperature 98.1 F 98.5 F Pulse Rate 83 83 69 Respiratory Rate 18 20 18 Blood Pressure 139/63 116/58 L 164/68 H Pulse Oximetry 94 L 93 L 95 06/28/18 00:14 06/28/18 01:19 06/28/18 03:03 Temperature Pulse Rate 71 Respiratory Rate 18 15 14 Blood Pressure 151/71 H Pulse Oximetry 94 L 06/28/18 04:00 06/28/18 04:04 06/28/18 04:05 Temperature 98 F Pulse Rate 62 65 68 Respiratory Rate 18 18 18 Blood Pressure 155/92 H 165/84 H 146/64 H Pulse Oximetry 94 L 92 L 94 L Intake & Output 06/27/18 06/28/18 06/28/18 18:59 06:59 18:59 Intake Total 1240 / 1240 Balance 1240 / 1240 Weight 83 kg Intake: IV 1000 / 1000 NS Inj 1,000 ML @ 60 mls/hr IV. 1000 / 1000 CONT .[id number] [facility] Rx#:[id number] Oral 240 / 240 Other: # Voids 2 Date of Last Bowel Movement 06/27/18 06/27/18 # Bowel Movements 0 - Constitutional no acute distress - Routine Neck Exam Absent: JVD - Routine Respiratory Exam Present: CTA bilaterally - Routine Cardiovascular Exam Present: RRR, S1, S2. Absent: murmur, gallop - Routine Abdominal Exam Present: soft, normoactive bowel sounds. Absent: tenderness, organomegaly - Routine Extremities Exam Absent: cyanosis, clubbing, edema Assessment and Plan - Assessment (1) Atrial arrhythmia Code(s): I49.8 - Other specified cardiac arrhythmias Status: Chronic Plan: Monitoring overall stable overnight. Frequency of atrial dysrhythmia salvoes appears less. One 10 beat run of wide complex arrhythmia, probably benign accelerated idioventricular rhythm. Unfortunately considerable artefact on monitor strips. The ones without artefact do suggest discernible P wave activity during the brief atrial arrhythmias. No definitive atrial fibrillation. REC continue propafenone 150 mg bid, metoprolol 50 mg bid, increased aspirin dosing to 162 mg daily, outpatient 3-4 week monitoring; OK to discharge later today from a cardiac standpoint, f/u with Dr. Harris (2) Hypertension Code(s): I10 - Essential (primary) hypertension Status: Chronic Plan: Overall suboptimal BP's. Recommend double Losartan dosing, f/u with PCP. (3) Hyperlipidemia Code(s): E78.5 - Hyperlipidemia, unspecified Status: Chronic Plan: Monitored as outpatient. Continue statin therapy. - Plan Code Status: full code Discussed Condition With: patient (2) Hypertension Qualifiers: Hypertension type: essential hypertension Qualified Code(s): I10 - Essential (primary) hypertension (3) Hyperlipidemia Qualifiers: Hyperlipidemia type: unspecified Qualified Code(s): E78.5 - Hyperlipidemia, unspecified
[2018-06-28] MEDS ORDERED: Allopurinol 300 MG Tablet PO SCH (09:00)
[2018-06-28] MEDS ORDERED: Sertraline 100 MG Tablet PO SCH (09:00)
[2018-06-28] MEDS: Metoprolol Tartrate 50 MG Tablet PO SCH (09:09)
[2018-06-28] MEDS: Propafenone 150 MG Tablet PO SCH (09:09)
[2018-06-28] MEDS: Gabapentin 300 MG Capsule PO SCH (09:10)
[2018-06-28 09:54] VITALS: O2SAT 92
[2018-06-28 13:09] VITALS: BP 128/60; PULSE 53; RESP 16; TEMP 97.8
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
--- NOTE | 2018-06-28 17:16 | ECHRPT ---
Indication: CVA / TIA CONCLUSIONS Normal left ventricular size. Wall thickness is normal. The left ventricular systolic function is low normal with an estimated ejection fraction in the rang e of 50- 55%. The left atrial size is mildly dilated. Trace mitral valve regurgitation. Trace aortic valve regurgitation. There is trace tricuspid valve regurgitation. The estimated pulmonary arterial pressure is 33mmHg. BP: / HR: Rhythm: MEASUREMENTS (Male / Female) Normal Values Technical Quality:Fair 2D ECHO LV Diastolic Diameter PLAX 3.7 cm 4.2 - 5.9 / 3.9 - 5.3 cm LV Systolic Diameter PLAX 3.0 cm IVS Diastolic Thickness 1.1 cm 0.6 - 1.0 / 0.6 - 0.9 cm LVPW Diastolic Thickness 1.1 cm 0.6 - 1.0 / 0.6 - 0.9 cm LV Relative Wall Thickness 0.6 RV Internal Dim ED PLAX 2.7 cm LVOT Diameter 2.1 cm Aortic Root Diameter 3.0 cm LA Systolic Diameter LX 3.9 cm 3.0 - 4.0 / 2.7 - 3.8 cm M-MODE AV Cusp Separation MM 2.2 cm DOPPLER AV Peak Velocity 138.0 cm/s AV Peak Gradient 7.6 mmHg AI Peak Velocity 367.0 cm/s AI Peak Gradient 53.9 mmHg AI Pressure Half Time 1060.0 ms Mitral E Point Velocity 78.0 cm/s Mitral A Point Velocity 66.6 cm/s Mitral E to A Ratio 1.2 LV E' Lateral Velocity 10.0 cm/s Mitral E to LV E' Lateral Ratio 7.8 LV E' Septal Velocity 7.2 cm/s Mitral E to LV E' Septal Ratio 10.8 TR Peak Velocity 244.0 cm/s TR Peak Gradient 23.8 mmHg Right Atrial Pressure 10.0 mmHg Pulmonary Artery Systolic Pressu 33.8 mmHg Right Ventricular Systolic Press 33.8 mmHg PV Peak Velocity 96.6 cm/s PV Peak Gradient 3.7 mmHg FINDINGS LEFT VENTRICLE Normal left ventricular size. Wall thickness is normal. The left ventricular systolic function is low normal with an estimated ejection fraction in the rang e of 50- 55%. RIGHT VENTRICLE Normal right ventricular size and systolic function. LEFT ATRIUM The left atrial size is mildly dilated. RIGHT ATRIUM The right atrial size is normal. ATRIAL SEPTUM Normal atrial septal thickness without atrial level shunting by limited color doppler interrogation. AORTA The aortic root and proximal ascending aorta are normal in size on limited imaging. MITRAL VALVE Trace mitral valve regurgitation. AORTIC VALVE Trace aortic valve regurgitation. TRICUSPID VALVE There is trace tricuspid valve regurgitation. The estimated pulmonary arterial pressure is 33mmHg. PULMONARY VALVE No pulmonary valve regurgitation or stenosis. VESSELS The inferior vena cava is normal in size. PERICARDIUM No pericardial effusion. Ming West MD, FACC (Electronically Signed) Final Date:28 June 2018 17:16
== END 2018-06-28 18:47 | disposition home health service (06) ==
LOC: NEPC 12:23 → NEDA 18:26 → NEPHCDU 20:54 → N06 06-27 16:53
PROVIDERS: ADMIT Internal Medicine; ATTEND Internal Medicine